=== PATIENT | male | born 1985 | race Caucasian/White ===

== ENCOUNTER 2016-05-27 16:17 | Emergency (ER) | payer BC ==
[2016-05-27] MEDS ORDERED: NS 0.9% 1000 ML* 2,000 ML IV ONE (16:37)
[2016-05-27 17:01] LABS: Hematocrit 48 % (42-52); Hemoglobin 16.1 g/dl (14.0-18.0); Mean Corpuscular HGB Conc 33 g/dl (31-36); Mean Corpuscular Hemoglobin 28 pg (27-31); Mean Corpuscular Volume 85 fL (80-94); Mean Platelet Volume 9 um3 (7.4-10.4); Red Blood Count 5.65 10^6/ul (4.0-5.4); Red Cell Distribution Width 13 % (10.5-15); White Blood Count 5.5 10^3/ul (3.5-10.8)
--- NOTE | 2016-05-27 17:19 | RAD ---
INDICATION: Altered mental status. COMPARISON: Comparison is made with a prior chest x-ray study from September 20, 2015. TECHNIQUE: A portable view of the chest was obtained. FINDINGS: Cardiac and mediastinal contours appear to be within normal limits. The lungs are clear. No pleural effusion is seen. IMPRESSION: NO EVIDENCE FOR ACUTE DISEASE.
--- NOTE | 2016-05-27 17:26 | RAD ---
INDICATION: Confusion. COMPARISON: There are no prior studies available for comparison. TECHNIQUE: Contiguous axial sections of the brain were obtained from the skull base to the vertex without contrast. FINDINGS: The ventricles, cisterns and sulci are within normal limits. No significant focal abnormality or mass effect is seen. There is no evidence for hemorrhage. No significant focal osseous abnormality is seen. The visualized portion of the paranasal sinuses and mastoid air cells appear clear. IMPRESSION: NO EVIDENCE FOR GROSS ACUTE INFARCT, MASS EFFECT OR HEMORRHAGE.
[2016-05-27 17:35] LABS: ALT 14 U/L (7-52); AST 19 U/L (13-39); Albumin 4.8 g/dL (3.2-5.2); Alkaline Phosphatase 59 U/L (34-104); Anion Gap 4 mmol/L (2-11); BUN/Creatinine Ratio 10.7 (8-20); Blood Urea Nitrogen 11 mg/dL (6-24); C Reactive Protein < 1.00 mg/L (< 5.00); CO2 Carbon Dioxide 28 mmol/L (22-32); Calcium 9.6 mg/dL (8.6-10.3); Chloride 109 mmol/L (101-111); Creatine Kinase 71 U/L (10-223); EGFR Non-African American 84.8 (>60); Globulin 2.9 g/dL (2-4); Glucose 77 mg/dL (70-100); Lipase 535 U/L (11.0-82.0); Magnesium 2.7 mg/dL (1.9-2.7); Sodium 141 mmol/L (133-145); Total Protein 7.7 g/dL (6.4-8.9)
[2016-05-27 17:39] LABS: Acetaminophen < 15 mcg/mL; Alcohol 285 mg/dL (<10); Salicylate < 2.50 mg/dL (<30)
[2016-05-27 17:49] LABS: TSH (Thyroid Stimulating Horm) 0.47 mcIU/mL (0.34-5.60)
--- NOTE | 2016-05-27 18:48 | ED ---
I, Oh,Ricardo, scribed for Douglas Garcia MD on 05/27/16 at 1636 . Altered Mental Status - HPI Summary HPI Summary: Slightly limited HPI due to increased confusion. This 31 y/o male presents to ED after his co-workers noticed that pt was "off" this morning. Pt currently reports increased confusion, but denies any focal weakness, dysuria, CP, SOB, or diarrhea. Pt also appears oriented to time and place at time time of initial evaluation, and is able to answer all the questions and follow commands although a bit slow to answer. Negative EtOH or recreational drug per pt. Pt states that he woke up okay but felt "not good" when he checked into his work around 0830 AM. 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 He consumed banana for his breakfast this morning. He is currently on Cymbalta, which were recently increased in dose. - History Of Current Complaint Chief Complaint: EDAltMentalStatus Stated Complaint: AMS Time Seen by Provider: 05/27/16 16:30 Hx Obtained From: Patient Onset/Duration: Still Present Timing: Constant Severity Initially: Mild Severity Currently: Mild Character: Confusion Aggravating Factor(s): Nothing Alleviating Factor(s): Nothing Associated Signs And Symptoms: Negative: Nausea, Fever, Headache, Weakness - Allergies/Home Medications Allergies/Adverse Reactions: Allergies Allergy/AdvReac Type Severity Reaction Status Date / Time Bee Venom Allergy Swelling Verified 07/17/15 19:05 Shellfish Allergy Allergy Vomiting Verified 07/17/15 19:05 PMH/Surg Hx/FS Hx/Imm Hx Psychiatric History: Reports: Hx Depression Infectious Disease History: Denies: Hx Clostridium Difficile, Hx Hepatitis, Hx Human Immunodeficiency Virus (HIV), Hx of Known/Suspected MRSA, Hx Shingles, Hx Tuberculosis, Hx Known/ Suspected VRE, Hx Known/Suspected VRSA, History Other Infectious Disease - Family History Known Family History: Negative: Cardiac Disease, Hypertension, Diabetes - Social History Occupation: Employed Full-time - Research tech at [employer] Alcohol Amount: previous "heavy drinking" 12-15 drinks 2 times a month stopped 2 years ago Hx Substance Use: Yes Substance Use Type: Reports: Marijuana Hx Tobacco Use: No Smoking Status (MU): Never Smoked Tobacco Review of Systems Negative: Fever Negative: Diarrhea, Nausea Negative: dysuria Neurological: Other - positive for increased confusion Negative: Weakness Negative: Anxious, Depressed All Other Systems Reviewed And Are Negative: Yes Physical Exam Triage Information Reviewed: Yes Vital Signs On Initial Exam: Initial Vitals Temp Pulse Resp BP Pulse Ox 98.2 F 87 18 121/72 95 05/27/16 16:23 05/27/16 16:23 05/27/16 16:23 05/27/16 16:23 05/27/16 16:23 Vital Signs Reviewed: Yes Appearance: Positive: Well-Appearing, No Pain Distress Skin: Positive: Warm, Skin Color Reflects Adequate Perfusion, Dry Head/Face: Positive: Normal Head/Face Inspection Eyes: Positive: EOMI, JOSE Neck: Positive: Supple, Nontender Respiratory/Lung Sounds: Positive: Breath Sounds Present Cardiovascular: Positive: RRR, Pulses are Symmetrical in both Upper and Lower Extremities Neurological: Positive: Sensory/Motor Intact, Alert, Oriented to Person Place, Time, CN Intact II-III, Other - slow to answer questions. Negative: Focal Deficit @ Psychiatric: Positive: Affect/Mood Appropriate AVPU Assessment: Alert Diagnostics - Vital Signs Vital Signs Temp Pulse Resp BP Pulse Ox 05/27/16 17:00 16 110/90 05/27/16 16:29 89 97 05/27/16 16:28 121/72 05/27/16 16:23 98.2 F 87 18 121/72 95 - Laboratory Lab Results: Lab Results 05/27/16 05/27/16 05/27/16 Range/Units 16:51 16:51 16:51 WBC 5.5 (3.5-10.8) 10^3/ul RBC 5.65 H (4.0-5.4) 10^6/ul Hgb 16.1 (14.0-18.0) g/dl Hct 48 (42-52) % MCV 85 (80-94) fL MCH 28 (27-31) pg MCHC 33 (31-36) g/dl RDW 13 (10.5-15) % Plt Count 201 (150-450) 10^3/ul MPV 9 (7.4-10.4) um3 Neut % (Auto) 57.8 (38-83) % Lymph % (Auto) 36.2 (25-47) % Laurel % (Auto) 5.2 (1-9) % Eos % (Auto) 0.4 (0-6) % Baso % (Auto) 0.4 (0-2) % Absolute Neuts (auto) 3.2 (1.5-7.7) 10^3/ul Absolute Lymphs (auto) 2.0 (1.0-4.8) 10^3/ul Absolute Monos (auto) 0.3 (0-0.8) 10^3/ul Absolute Eos (auto) 0 (0-0.6) 10^3/ul Absolute Basos (auto) 0 (0-0.2) 10^3/ul Absolute Nucleated RBC 0 10^3/ul Nucleated RBC % 0 INR (Anticoag Therapy) 0.91 (0.89-1.11) APTT 29.5 (26.0-36.3) seconds Sodium 141 (133-145) mmol/L Potassium 4.0 (3.5-5.0) mmol/L Chloride 109 (101-111) mmol/L Carbon Dioxide 28 (22-32) mmol/L Anion Gap 4 (2-11) mmol/L BUN 11 (6-24) mg/dL Creatinine 1.03 (0.67-1.17) mg/dL Est GFR ( Amer) 109.0 (>60) Est GFR (Non-Af Amer) 84.8 (>60) BUN/Creatinine Ratio 10.7 (8-20) Glucose 77 (70-100) mg/dL Lactic Acid (0.5-2.0) mmol/L Calcium 9.6 (8.6-10.3) mg/dL Magnesium 2.7 (1.9-2.7) mg/dL Total Bilirubin 0.60 (0.2-1.0) mg/dL AST 19 (13-39) U/L ALT 14 (7-52) U/L Alkaline Phosphatase 59 (34-104) U/L Ammonia (16-53) mol/L Total Creatine Kinase 71 (10-223) U/L CK-MB (CK-2) 1.6 (0.6-6.3) ng/mL Troponin I 0.00 (<0.04) ng/mL C-Reactive Protein < 1.00 (< 5.00) mg/L Total Protein 7.7 (6.4-8.9) g/dL Albumin 4.8 (3.2-5.2) g/dL Globulin 2.9 (2-4) g/dL Albumin/Globulin Ratio 1.7 (1-3) Lipase 535 H (11.0-82.0) U/L TSH 0.47 (0.34-5.60) mcIU/mL Salicylates < 2.50 (<30) mg/dL Acetaminophen < 15 mcg/mL Serum Alcohol 285 H (<10) mg/dL 05/27/16 05/27/16 Range/Units 16:51 16:51 WBC (3.5-10.8) 10^3/ul RBC (4.0-5.4) 10^6/ul Hgb (14.0-18.0) g/dl Hct (42-52) % MCV (80-94) fL MCH (27-31) pg MCHC (31-36) g/dl RDW (10.5-15) % Plt Count (150-450) 10^3/ul MPV (7.4-10.4) um3 Neut % (Auto) (38-83) % Lymph % (Auto) (25-47) % Laurel % (Auto) (1-9) % Eos % (Auto) (0-6) % Baso % (Auto) (0-2) % Absolute Neuts (auto) (1.5-7.7) 10^3/ul Absolute Lymphs (auto) (1.0-4.8) 10^3/ul Absolute Monos (auto) (0-0.8) 10^3/ul Absolute Eos (auto) (0-0.6) 10^3/ul Absolute Basos (auto) (0-0.2) 10^3/ul Absolute Nucleated RBC 10^3/ul Nucleated RBC % INR (Anticoag Therapy) (0.89-1.11) APTT (26.0-36.3) seconds Sodium (133-145) mmol/L Potassium (3.5-5.0) mmol/L Chloride (101-111) mmol/L Carbon Dioxide (22-32) mmol/L Anion Gap (2-11) mmol/L BUN (6-24) mg/dL Creatinine (0.67-1.17) mg/dL Est GFR ( Amer) (>60) Est GFR (Non-Af Amer) (>60) BUN/Creatinine Ratio (8-20) Glucose (70-100) mg/dL Lactic Acid 1.2 (0.5-2.0) mmol/L Calcium (8.6-10.3) mg/dL Magnesium (1.9-2.7) mg/dL Total Bilirubin (0.2-1.0) mg/dL AST (13-39) U/L ALT (7-52) U/L Alkaline Phosphatase (34-104) U/L Ammonia 40 (16-53) mol/L Total Creatine Kinase (10-223) U/L CK-MB (CK-2) (0.6-6.3) ng/mL Troponin I (<0.04) ng/mL C-Reactive Protein (< 5.00) mg/L Total Protein (6.4-8.9) g/dL Albumin (3.2-5.2) g/dL Globulin (2-4) g/dL Albumin/Globulin Ratio (1-3) Lipase (11.0-82.0) U/L TSH (0.34-5.60) mcIU/mL Salicylates (<30) mg/dL Acetaminophen mcg/mL Serum Alcohol (<10) mg/dL Result Diagrams: 05/27/16 16:51 05/27/16 16:51 Lab Statement: Any lab studies that have been ordered have been reviewed, and results considered in the medical decision making process. - Radiology CXR Xray Interpretation: No Acute Changes Radiology Interpretation Completed By: Radiologist - CT Brain CT Interpretation: No Acute Changes CT Interpretation Completed By: Radiologist - EKG 1644 Cardiac Rate: NL - 84 bpm EKG Rhythm: Sinus Rhythm Ectopy: None EKG Interpretation: Early repolarization Re-Evaluation - Re-Evaluation First Eval Re-Evaluation Time: 18:30 Comment: MD in room to share bloodwork with positive serum alcohol and imaging results are shared with pt. Plan of care involving discharge and outpatient f/u is discussed with pt, and he is agreeable. Altered Mental Statu Course/Dx - Course Assessment/Plan: DISCUSSED RESULTS WITH PATIENT AND . THEY REPORT ONE YEAR OF ELEVATED LIPASES THAT ARE BEING FOLLOWED BY HIS PMD AND GASTROENTEROLOGY. WHEN ASKED, PATIENT DECLINED IMAGING OF THE PANCREAS TODAY. HE ADMITTED TO BEING AN ALCOHOLIC. DISCHARGE HOME STABLE. - Diagnoses Discharge Diagnoses: Alcohol intoxication, Pancreatitis Discharge - Discharge Plan Condition: Stable Disposition: HOME Patient Education Materials: Pancreatitis (ED), Alcohol Intoxication (ED) Forms: *Work Release Referrals: [facility] [Outside] [facility] [Outside] [facility] [Outside] Kandi Mcnally MD [Primary Care Provider] - Additional Instructions: FOLLOW UP WITH YOUR PRIMARY CARE AND DOCTOR AND AUTOMATION CONTROL INTEGRATOR. RETURN TO THE EMERGENCY DEPARTMENT FOR ANY WORSENING OF YOUR CONDITION; ABDOMINAL PAIN, FEVER, YOU FEEL ILL OR QUESTIONS OR CONCERNS. The documentation as recorded by the Jann brooks Soohyun accurately reflects the service I personally performed and the decisions made by me, Douglas Garcia MD.
[2016-05-27 19:09] VITALS: BP 141/89
== END 2016-05-27 19:07 | disposition home or self-care (01) ==
LOC: ED 16:17
DX: F10.129 Alcohol abuse with intoxication, unspecified (principal); K85.90 Acute pancreatitis without necrosis or infection, unspecified
CPT/HCPCS: 36415; 70450; 71010; 80053; 80320; 80329; 82140; 82550; 82553; 83605; 83690; 83735; 84443; 84484; 85025; 85610; 85730; 86140; 93005; 99282; G0480

== ENCOUNTER 2018-10-27 11:28 | Emergency (ER) | payer BC ==
--- NOTE | 2018-10-27 11:40 | UC ---
Back Pain HPI - HPI Summary HPI Summary: 33 yo male presents with low back pain. He tells me that 3 days ago he bent down holding a water trough to feed his pigs at home and felt a pull in his lower back. Since that time has had pain, but has been trying to work through it. Has not taken anything OTC for his discomfort. Pain is worse with movement. Denies radiation of pain, numbness, tingling, dysuria, saddle anesthesia, or loss of bladder/bowel control. - History of Current Complaint Chief Complaint: UCBackPain Stated Complaint: BACK PAIN Time Seen by Provider: 10/27/18 11:40 Hx Obtained From: Patient Onset/Duration: Sudden Onset Timing: Constant Severity Initially: Severe Severity Currently: Severe Pain Intensity: 10 Pain Scale Used: 0-10 Numeric - Allergies/Home Medications Allergies/Adverse Reactions: Allergies Allergy/AdvReac Type Severity Reaction Status Date / Time bee venom protein (honey bee) Allergy Swelling Verified 10/27/18 11:39 NSAIDS (Non-Steroidal Allergy Hives Verified 10/27/18 11:39 Anti-Inflamma shellfish derived Allergy Vomiting Verified 10/27/18 11:39 PMH/Surg Hx/FS Hx/Imm Hx - Additional Past Medical History Additional PMH: None - Surgical History Surgical History: None - Family History Known Family History: Positive: None Negative: Cardiac Disease, Hypertension, Diabetes - Social History Occupation: Employed Full-time Lives: With Family Alcohol Use: None Alcohol Amount: previous "heavy drinking" 12-15 drinks 2 times a month stopped 2 years ago Substance Use Type: Marijuana Substance Use Comment - Amount & Last Used: previous Smoking Status (MU): Never Smoked Tobacco - Immunization History Most Recent Influenza Vaccination: none Review of Systems All Other Systems Reviewed And Are Negative: Yes Constitutional: Positive: Negative Skin: Positive: Negative Respiratory: Positive: Negative Cardiovascular: Positive: Negative Gastrointestinal: Positive: Negative Genitourinary: Positive: Negative Motor: Positive: Negative Neurovascular: Positive: Negative Musculoskeletal: Positive: Other: - Low back pain Neurological: Positive: Negative Psychological: Positive: Negative Physical Exam - Summary Physical Exam Summary: GENERAL: NAD. WDWN. No pain distress. SKIN: No rashes, sores, lesions, or open wounds. NECK: Supple. FROM. Nontender. No lymphadenopathy. CHEST: CTAB. No r/r/w. No accessory muscle use. Breathing comfortably and in no distress. CV: RRR. Without m/r/g. Pulses intact. Cap refill <2seconds MSK: TTP over lumbar paraspinal muscles. Pain with flexion and extension of spine. Positive SLR b/l for low back pain without radiation. Strength 5/5 B/L LEs including dorsiflexion and plantar flexion. FROM B/L LEs. No edema. NEURO: Alert. Sensations intact B/L LEs L3-S1. Reflexes intact PSYCH: Age appropriate behavior. Triage Information Reviewed: Yes Vital Signs: Initial Vital Signs Temp 98.5 F 10/27/18 11:35 Pulse 100 10/27/18 11:35 Resp 18 10/27/18 11:35 BP 138/100 10/27/18 11:35 Pulse Ox 96 10/27/18 11:35 Vital Signs Reviewed: Yes Back Pain Course/Dx - Course Course Of Treatment: In the clinic he was given tylenol for his discomfort as he is allergic to NSAIDs and he drove himself here. XR: IMPRESSION: 1. Only mild degenerative disc disease and facet arthropathy at L5-S1. 2. No fracture by radiograph. Suspect muscle spasm vs disc pathology. Will treat with muscle relaxers and pain medication. Will have him start physical therapy and be rechecked by his PCP in 1 week. - Differential Dx/Diagnosis Provider Diagnosis: Low back pain Discharge - Sign-Out/Discharge Documenting (check all that apply): Patient Departure All imaging exams completed and their final reports reviewed: Yes - Discharge Plan Condition: Stable Disposition: HOME Prescriptions: Cyclobenzaprine TAB* [Flexeril 10 MG TAB*] 10 mg PO TID PRN #21 tab PRN Reason: Pain - Mild traMADol TAB* [Ultram*] 50 mg PO Q12H PRN #8 tab MDD 2 PRN Reason: Pain - Moderate Patient Education Materials: Acute Low Back Pain (ED) Forms: *Work Release Referrals: Kandi Mcnally MD [Primary Care Provider] - 1 Week Additional Instructions: If you develop a fever, shortness of breath, chest pain, new or worsening symptoms - please call your PCP or go to the ED immediately. Your blood pressure was high at todays visit. Please see your primary provider within 4 weeks for recheck and re-evaluation. Please apply heat to your back to reduce stiffness I recommend you schedule an appointment with Physical Therapy for further treatment as well as a recheck with your primary doctor in 1-2 weeks - Billing Disposition and Condition Condition: STABLE Disposition: Home
[2018-10-27] MEDS ORDERED: Acetaminophen TAB* 325 MG PO ONE (11:53)
[2018-10-27 12:37] VITALS: BP 138/70
== END 2018-10-27 13:00 | disposition home or self-care (01) ==
LOC: UCEAST 11:28
DX: M54.5 Low back pain (principal)
CPT/HCPCS: 72110; 99212; A9270-GY; G0463